=== PATIENT | male | born 1960 | race Caucasian/White ===

== ENCOUNTER 2017-03-26 22:27 | Emergency (ER) | payer MEDICAID, OTHER ==
--- NOTE | 2017-03-26 22:34 | EDPHY ---
H & P HPI/ROS: HPI CHIEF COMPLAINT: Fall, tail bone pain HISTORY OF PRESENT ILLNESS: Patient is a 56-year-old male, he resides at [facility] who presents emergency room by EMS after he sustained a fall at [facility]. Unclear exactly what happened but the patient does complain of tail bone pain. Additionally staff there thought he was confused and they were concerned about intracranial injury. They sent him here to the emergency room to have evaluation of his tailbone pain and additionally to rule out head bleed. Patient is unsure if he hit his head. He is at his neurological baseline. Past Medical History: History of a CVA with left-sided residual deficit, hypertension, hyperlipidemia, COPD Past Surgical History: No recent surgery Social History: Resides at [facility]. Family History: Noncontributory ROS REVIEW OF SYSTEMS: A comprehensive 10 point review of systems is otherwise negative aside from elements mentioned in the history of present illness. Exam Constitutional triage nursing summary reviewed, vital signs reviewed, awake/ alert. Eyes normal conjunctivae and sclera, EOMI, PERRLA. HENT head/neck atraumatic, no midline cervical spine pain, no step-offs, moist mucus membranes, no epistaxis, neck supple/ no meningismus, no raccoon eyes. Respiratory clear to auscultation bilaterally, normal breath sounds, no respiratory distress, no wheezing. Cardiovascular rate normal, regular rhythm, no murmur, no edema, distal pulses normal. Gastrointestinal soft, non-tender, no rebound, no guarding, normal bowel sounds, no distension, no pulsatile mass. Genitourinary no CVA tenderness. Musculoskeletal no midline vertebral tenderness, full range of motion, no calf swelling, no tenderness of extremities, no meningismus, good pulses, neurovascularly intact. Skin pink, warm, & dry, no rash, skin atraumatic. Neurologic he has a left-sided residual weakness deficit upper and lower, awake , alert and oriented x 3, AAOx3, sensory intact, CN II-XII intact, normal cerebellar, normal vision, normal speech. Psychiatric normal mood/affect. Heme/Lymph/Immune no lymphadenopathy. Differential Diagnosis: Includes but is not limited to in a particular order mechanical trip and fall, coccyx fracture, coccyx contusion, intracranial bleed , head injury Medical Decision Making: Plan for this patient x-ray of the coccyx, additionally CT scan head without contrast rule out significant trauma. Re-evaluation: CT scan head without contrast for trauma called to me by Dr. resendiz. Negative for acute traumatic injury. Old infarct visualized. Coccyx x-ray reviewed. I do not appreciate acute fracture. Patient re-evaluated this time 11:29 p.m.. Resting comfortably no acute distress. Will allow him to be discharged back to [facility]. Source: Patient, EMS Constitutional: Initial Vital Signs Temperature (C) 36.7 C 03/26/17 22:27 Heart Rate 48 L 03/26/17 22:27 Respiratory Rate 16 03/26/17 22:27 Blood Pressure 124/71 H 03/26/17 22:27 O2 Sat (%) 94 03/26/17 22:27 O2 Delivery Mode Room Air Allergies/Adverse Reactions: penicillin G Allergy (Verified 03/26/17 22:56) Home Medications: Medication Instructions Recorded Acetaminophen [Tylenol 325mg (*)] 650 mg PO Q6 03/26/17 Aspirin 81 mg PO 03/26/17 Baclofen [Baclofen 10 mg (*)] 10 mg PO TID 03/26/17 Clopidogrel Bisulfate [Clopidogrel] 75 mg PO 03/26/17 Ipratropium/Albuterol [Duoneb (*)] 3 ml IH 03/26/17 Lactobacillus Acidophilus 1 each PO 03/26/17 [Acidophilus] Lisinopril 20 mg PO 03/26/17 Metoprolol Succinate 100 mg PO 03/26/17 Multivitamin [Multi-Vitamin Daily] 1 each PO 03/26/17 Polyethylene Glycol 3350 [Miralax 17 gm PO DAILY 03/26/17 17 gm (*)] Ranitidine HCl 150 mg PO 03/26/17 Sennosides [Senna Lax] 8.6 mg PO 03/26/17 Sertraline HCl 25 mg PO 03/26/17 Sertraline HCl 25 mg PO 03/26/17 amLODIPine BESYLATE [Amlodipine 10 mg PO 03/26/17 Besylate] Departure - Departure Disposition: Home, Routine, Self-Care Clinical Impression: Fall Qualifiers: Encounter type: initial encounter Qualified Code(s): W19.XXXA - Unspecified fall, initial encounter Contusion Qualifiers: Encounter type: initial encounter Contusion area: head Contusion of head detail : scalp Qualified Code(s): S00.03XA - Contusion of scalp, initial encounter Condition: Good Instructions: Fall Prevention for Older Adults (ED), Contusion in Adults (ED), Fall Prevention (ED) Referrals: Patient,NotPresent [Primary Care Provider] - As per Instructions
[2017-03-27 00:50] VITALS: PULSE 49; TEMP 98.4
[2017-03-27 00:55] VITALS: BP 124/77; RESP 16; O2SAT 92
== END 2017-03-27 00:57 | disposition home or self-care (01) ==
LOC: EDUNIT#
DX: S00.03XA Contusion of scalp, initial encounter (principal); I10 Essential (primary) hypertension; J44.9 Chronic obstructive pulmonary disease, unspecified; Z79.82 Long term (current) use of aspirin; Z86.73 Personal history of transient ischemic attack (TIA), and cerebral infarction without residual deficits; W19.XXXA Unspecified fall, initial encounter; Y92.89 Other specified places as the place of occurrence of the external cause